=== PATIENT | female | born 1965 | race Caucasian/White ===

== ENCOUNTER 2018-05-29 07:12 | Day surgery (SDC) | payer OTHER ==
[~2018-05-29] VITALS: Ht 154.9 cm; Wt 81.6 kg
[2018-05-29 07:38] VITALS: BP 152/86
[2018-05-29 14:00] VITALS: BP 144/81
== END 2018-05-29 12:10 | disposition home or self-care (01) ==
LOC: DS 07:12 → OR 09:30 → DS 12:10
PROVIDERS: Obstetrics & Gynecology
PROC: 0UDB7ZZ Extraction of Endometrium, Via Natural or Artificial Opening (ICD-10-PCS; principal; 2018-05-29 09:00)
DX: N95.0 Postmenopausal bleeding (principal); I10 Essential (primary) hypertension; K21.9 Gastro-esophageal reflux disease without esophagitis; E66.9 Obesity, unspecified; Z68.30 Body mass index [BMI] 30.0-30.9, adult
CPT/HCPCS: C1758; J0690; J1170; J2250; J2405; J2704; J3010; J7030